=== PATIENT | female | born 1950 | race Native Hawaiian/Other Pacific Islander ===

== ENCOUNTER 2024-10-09 15:38 | Inpatient (IN) | payer MEDICARE ==
[~2024-10-09 15:38] MED LIST: Iopamidol 370 76% 100 ML VIAL ONE
[2024-10-09 17:10] LABS: #Basophils 0.03 10x3/uL (0.0-0.2); #Eosinophils 0.25 10x3/uL (0.0-0.5); #Monocytes 0.47 10x3/uL (0.0-1.1); #Neutrophils 5.72 10x3/uL (1.5-8.4); %Basophils 0.4 % (0.0-2.0); %Eosinophils 3.4 % (0.0-6.0); %Lymphocytes 11.8 % (18.0-47.0); %Monocytes 6.4 % (0.0-10.0); %Neutrophils 77.2 % (40.0-75.0); Hematocrit 32.2 % (34.9-44.5); Hemoglobin 9.7 g/dL (12.0-15.5); Mean Corpuscular Hemoglobin 26.3 pg (27.0-33.0); Mean Corpuscular Volume 87.3 fL (81.6-98.3); Platelet Count 371 10x3/uL (150-450); Red Blood Cell (RBC) Count 3.69 10x6/uL (3.90-5.03); White Blood Cell (WBC) Count 7.40 10x3/uL (3.5-10.5)
[2024-10-09] MEDS ORDERED: Cefepime 2 GM VIAL ONE (17:17)
[2024-10-09 17:30] LABS: ALT (SGPT) 12 U/L (Less than 34); AST (SGOT) 14 U/L (11-34); Albumin 3.5 g/dL (3.1-4.5); Alkaline Phosphatase 87 U/L (40-110); Anion Gap 11 mmol/L (10-20); BUN (Urea Nitrogen) 22 mg/dL (9.8-20.1); Bilirubin, Total 0.3 mg/dL (0.3-1.2); Calc. Creatinine Clearance 0 mL/min (70-130); Calcium 8.8 mg/dL (7.8-10.44); Carbon Dioxide 24 mmol/L (23-31); Chloride 110 mmol/L (98-107); Globulin 4.0 g/dL (2.4-3.5); Glucose 147 mg/dL (83-110); Potassium 4.3 mmol/L (3.5-5.1); Sodium 141 mmol/L (136-145)
[2024-10-09] MEDS ORDERED: Guaifenesin DM 100-10/5 ML UDCUP PO PRN (19:19)
[2024-10-09] MEDS ORDERED: Acetaminophen/Codeine 30-300mg Tablet PO PRN (19:19)
[2024-10-09] MEDS ORDERED: Dextrose 50% Abboject 50 ML SYRINGE SLOW IVP PRN (19:19)
[2024-10-09] MEDS ORDERED: Ondansetron PF 4 MG/2 ML Vial IVP PRN (19:19)
[2024-10-09] MEDS ORDERED: Senokot S 8.6-50 MG TAB PO PRN (19:19)
[2024-10-09] MEDS ORDERED: Acetaminophen 325 MG TAB PO PRN (19:19)
[2024-10-09] MEDS ORDERED: Glucagon 1 MG/ML KIT IM PRN (19:19)
[2024-10-09] MEDS ORDERED: Calcium Carbonate 500 MG ChewTAB PO PRN (19:19)
[2024-10-09] MEDS ORDERED: dilTIAZem 25 MG/5 ML VIAL SLOW IVP PRN (19:32)
[2024-10-09] MEDS ORDERED: Furosemide 40 MG (4 mL) VIAL ONE (20:15)
[2024-10-09] MEDS ORDERED: dilTIAZem 25 MG/5 ML VIAL ONE (20:16)
[2024-10-09] MEDS: Apixaban 5 MG TAB PO SCH (22:11)
[2024-10-09] MEDS: VANCOMYCIN 2 GRAM/400 ML BAG 2 GM in Premix 1 BAG IVPB SCH (22:35)
[2024-10-09 22:52] VITALS: BMI 29.0
[2024-10-10 04:22] LABS: #Basophils 0.04 10x3/uL (0.0-0.2); #Eosinophils 0.31 10x3/uL (0.0-0.5); #Monocytes 0.56 10x3/uL (0.0-1.1); #Neutrophils 4.89 10x3/uL (1.5-8.4); %Basophils 0.6 % (0.0-2.0); %Eosinophils 4.5 % (0.0-6.0); %Lymphocytes 14.7 % (18.0-47.0); %Monocytes 8.2 % (0.0-10.0); %Neutrophils 71.4 % (40.0-75.0); Hematocrit 31.0 % (34.9-44.5); Hemoglobin 9.3 g/dL (12.0-15.5); Mean Corpuscular Hemoglobin 26.1 pg (27.0-33.0); Mean Corpuscular Volume 87.1 fL (81.6-98.3); Platelet Count 325 10x3/uL (150-450); Red Blood Cell (RBC) Count 3.56 10x6/uL (3.90-5.03); White Blood Cell (WBC) Count 6.85 10x3/uL (3.5-10.5)
[2024-10-10 04:39] LABS: Vancomycin, Random 22.6 ug/mL (See Comment)
[2024-10-10 04:42] LABS: Anion Gap 14 mmol/L (10-20); BUN (Urea Nitrogen) 21 mg/dL (9.8-20.1); Calc. Creatinine Clearance 55 mL/min (70-130); Calcium 8.8 mg/dL (7.8-10.44); Carbon Dioxide 22 mmol/L (23-31); Chloride 111 mmol/L (98-107); Glucose 114 mg/dL (83-110); Potassium 4.6 mmol/L (3.5-5.1); Sodium 142 mmol/L (136-145)
[2024-10-10] MEDS: Furosemide 40 MG (4 mL) VIAL SLOW IVP SCH (06:33)
[2024-10-10] MEDS: Lisinopril 5 MG TAB PO SCH (08:17)
[2024-10-10] MEDS: Aspirin Chewable 81 MG TAB PO SCH (08:17)
[2024-10-10] MEDS: Famotidine 20 MG TAB PO SCH (08:17)
[2024-10-10] MEDS ORDERED: Enoxaparin 40 MG (0.4 mL) SYRINGE SC SCH (09:00)
[2024-10-10] MEDS ORDERED: Furosemide 40 MG TAB PO SCH (09:00)
[2024-10-10] MEDS: VANCOMYCIN 1.25 GM/250 ML BAG 1.25 GM in Premix 1 BAG IVPB SCH (17:57)
[2024-10-10] MEDS: VANCOMYCIN 1.25 GM/250 ML BAG ONE (17:57)
[2024-10-11 04:32] LABS: #Basophils 0.03 10x3/uL (0.0-0.2); #Eosinophils 0.30 10x3/uL (0.0-0.5); #Monocytes 0.49 10x3/uL (0.0-1.1); #Neutrophils 4.29 10x3/uL (1.5-8.4); %Basophils 0.5 % (0.0-2.0); %Eosinophils 5.0 % (0.0-6.0); %Lymphocytes 13.9 % (18.0-47.0); %Monocytes 8.2 % (0.0-10.0); %Neutrophils 71.6 % (40.0-75.0); Hematocrit 32.4 % (34.9-44.5); Hemoglobin 9.9 g/dL (12.0-15.5); Mean Corpuscular Hemoglobin 26.3 pg (27.0-33.0); Mean Corpuscular Volume 86.2 fL (81.6-98.3); Platelet Count 341 10x3/uL (150-450); Red Blood Cell (RBC) Count 3.76 10x6/uL (3.90-5.03); White Blood Cell (WBC) Count 5.99 10x3/uL (3.5-10.5)
[2024-10-11 04:47] LABS: Anion Gap 14 mmol/L (10-20); BUN (Urea Nitrogen) 23 mg/dL (9.8-20.1); Calc. Creatinine Clearance 47 mL/min (70-130); Calcium 9.1 mg/dL (7.8-10.44); Carbon Dioxide 24 mmol/L (23-31); Chloride 110 mmol/L (98-107); Glucose 91 mg/dL (83-110); Potassium 4.2 mmol/L (3.5-5.1); Sodium 144 mmol/L (136-145)
[2024-10-11 04:48] LABS: Vancomycin, Random 28.7 ug/mL (See Comment)
[2024-10-11] MEDS: Furosemide 40 MG TAB PO SCH (11:08)
[2024-10-11] MEDS: Vancomycin HCl 750 MG in Sodium Chloride 0.9% 250 ML 250 ML IVPB SCH (18:45)
[2024-10-12 05:38] LABS: #Basophils Less than 0.03 10x3/uL (0.0-0.2); #Eosinophils 0.36 10x3/uL (0.0-0.5); #Monocytes 0.44 10x3/uL (0.0-1.1); #Neutrophils 3.87 10x3/uL (1.5-8.4); %Basophils 0.4 % (0.0-2.0); %Eosinophils 6.5 % (0.0-6.0); %Lymphocytes 14.5 % (18.0-47.0); %Monocytes 8.0 % (0.0-10.0); %Neutrophils 70.1 % (40.0-75.0); Hematocrit 31.5 % (34.9-44.5); Hemoglobin 9.7 g/dL (12.0-15.5); Mean Corpuscular Hemoglobin 26.2 pg (27.0-33.0); Mean Corpuscular Volume 85.1 fL (81.6-98.3); Platelet Count 297 10x3/uL (150-450); Red Blood Cell (RBC) Count 3.70 10x6/uL (3.90-5.03); White Blood Cell (WBC) Count 5.52 10x3/uL (3.5-10.5)
[2024-10-12 05:57] LABS: Anion Gap 17 mmol/L (10-20); BUN (Urea Nitrogen) 21 mg/dL (9.8-20.1); Calc. Creatinine Clearance 54 mL/min (70-130); Calcium 8.5 mg/dL (7.8-10.44); Carbon Dioxide 22 mmol/L (23-31); Chloride 111 mmol/L (98-107); Glucose 90 mg/dL (83-110); Magnesium 2.0 mg/dL (1.6-2.6); Potassium 3.8 mmol/L (3.5-5.1); Sodium 146 mmol/L (136-145)
[2024-10-12] MEDS ORDERED: Vancomycin 1 GM in Sodium Chloride 0.9% 250 ML 250 ML IVPB SCH (18:00)
[2024-10-13 08:55] VITALS: BP 130/69; TEMP 98.1
== END 2024-10-13 12:05 | disposition home or self-care (01) | DRG 872 ==
LOC: CSHERS 15:38 → CSHTELE 19:19
PROVIDERS: ADMIT Student in an Organized Health Care Education/Training Program; ATTEND Hospitalist
DX: A41.9 Sepsis, unspecified organism (principal); I48.21 Permanent atrial fibrillation; L03.115 Cellulitis of right lower limb; L03.116 Cellulitis of left lower limb; I50.20 Unspecified systolic (congestive) heart failure; I42.9 Cardiomyopathy, unspecified; I13.0 Hypertensive heart and chronic kidney disease with heart failure and stage 1 through stage 4 chronic kidney disease, or unspecified chronic kidney disease; N18.9 Chronic kidney disease, unspecified; E11.22 Type 2 diabetes mellitus with diabetic chronic kidney disease; E78.5 Hyperlipidemia, unspecified; B35.3 Tinea pedis; D63.1 Anemia in chronic kidney disease; F32.A Depression, unspecified; E11.51 Type 2 diabetes mellitus with diabetic peripheral angiopathy without gangrene; I25.10 Atherosclerotic heart disease of native coronary artery without angina pectoris; Z91.013 Allergy to seafood; Z91.018 Allergy to other foods; Z79.82 Long term (current) use of aspirin; Z79.899 Other long term (current) drug therapy; Z95.1 Presence of aortocoronary bypass graft; Z98.890 Other specified postprocedural states; Z87.891 Personal history of nicotine dependence; Z86.73 Personal history of transient ischemic attack (TIA), and cerebral infarction without residual deficits; Z79.01 Long term (current) use of anticoagulants
CPT/HCPCS: 36415; 36416; 80048; 80053; 80202; 83605; 83735; 83880; 84145; 84443; 85025; 86140; 87040; 87081; 93005; 96365; 96366; 96367; 96375; 97139; J0692; J1940; J3373; J3375; J7050; Q9967